=== PATIENT | male | born 1935 | race Caucasian/White ===

== ENCOUNTER 2024-09-13 12:45 | Inpatient (IN) ==
[2024-09-13] MEDS: SODIUM CHLORIDE 0.9% 1,000 ML IV SCH (13:02)
--- NOTE | 2024-09-13 13:06 | Emergency Department Note ---
Impression & Plan Weakness, Fall, Parainfluenza ED Provider Note Provider: Dewayne Lopez MD CHIEF COMPLAINT: Fall, weakness HISTORY OF PRESENT ILLNESS: Patient is a 88-year-old gentleman history of prior Mohs surgery on the top of his head last month presenting here via ambulance from his home. Patient states that he was feeling well yesterday morning. Came back around lunchtime however after going to the grocery store and started to feel generally weak and fatigued. Took a nap. Woke up and just felt weak and had a hard time getting out of his recliner chair than normal. Did have dinner and breakfast with some muffins and orange juice this morning. States he was still feeling weak and then was on the phone with his son and states he twisted and fell to the ground. Denies losing consciousness. States he did hit the back of his head briefly. Was unable to get up. Son was contacted and came and ambulance was contacted. Ambulatory the patient was having difficulty signing paperwork as he states his vision was off and that the house he was in was quite warm. Patient states that it did not seem warm to him. He denies measured fever or cough or sore throat or shortness of breath. Denies chest pain or abdominal pain or nausea vomiting or diarrhea. Denies urinary symptoms or diarrheal symptoms. Denies other significant past medical history but does not follow with primary care. Denies current prescription medications. States he feels feels sort of weak and states his vision was off a little earlier due to some crusting or discharge in his eyes which is improved now. Denies sick contact. Patient with some chronic longstanding slight left leg swelling states been investigated before with ultrasound without findings of blood clot. PAST MEDICAL HISTORY: As noted above MEDICATIONS: Denies current prescription medications SOCIAL HISTORY: Lives at home by himself by report PHYSICAL EXAM: GENERAL: alert and oriented in no acute distress on stretcher Head: normocephalic with bandage in place on the top of the head without seepage or significant swelling or discharge. Not severely tender. EYES: No injection, discharge or icterus. PERRL, EOMI. NECK: Trachea midline. Supple without midline cervical tenderness ENT: Mucous membranes pink and moist. LUNGS: Airway patent. No retractions. Breath sounds clear with good air entry bilaterally. HEART: Regular rate and rhythm. No chest wall tenderness ABDOMEN: Soft and non-tender, without guarding or rebound. Stable pelvis. No flank tenderness. SKIN: Acyanotic, warm, dry, without rashes EXTREMITIES: Without tenderness of the upper extremities with a small abrasion to the right elbow. Soft compartments of the upper extremities neurovascularly intact distally in the hands. Lower extremities without significant tenderness or evidence of trauma. There is some slight 1+ edema of the lower left calf and ankle without tenderness. NEUROLOGICAL: No focal deficits moving all extremities. No aphasia. No facial droop or slurred speech. Normal strength and tone in the extremities. Sensation to gross touch normal. EK bpm normal sinus rhythm with left axis left bundle branch block. No clear acute ST segment elevation or Sgarbossa criteria with a QTc of 450. Compared to previous from April 08, 2014 I with a left bundle branch block. CONTINUOUS CARDIAC MONITORING: was ordered and showed a heart rate of 90s bpm in normal sinus rhythm GCS 15. Patient's laboratory studies and imaging reviewed. Differential includes traumatic injury, infection, dehydration, metabolic abnormality, hypo/hyperglycemia, electrolyte disturbance, anemia, hypoxia, cardiac sources, intracerebral event/neurologic, as well as other pathologies. IMPRESSION/MEDICAL DECISION MAKING: Patient in no distress. Not febrile here or hypotensive. Patient reports feeling weak since yesterday but not syncopized and losing his balance and falling today and being being too weak to get up. Little abrasion on the right elbow but I doubt any based on exam of any fracture or dislocation. No evidence of compartment syndrome. Did bump his head and will complete a CT here. Nexus negative and doubt cervical spine injury. No neurological deficits focally reported. Denies significant chest pain abdominal pain or nausea vomiting or diarrhea. Respiratory panel sent as well as basic blood work. Given some IV fluid hydration here. Nursing reports EMS stated the home was quite warm. It seems as if the patient is either slow to give me the full history or may be forgetful. Does not seem lethargic however. Unclear if the patient has underlying medical conditions as he does not follow with outpatient general primary care and has not been to the hospital recently. No evidence of any significant wounds to the head or obvious abnormality to the prior Mohs procedure to his head. Not having focal deficits and I doubt CVA acutely at this time. Blood work here today without significant anemia or leukocytosis. Normal platelet count. No significant renal dysfunction with a sodium of 135 but no other significant electrolyte abnormalities. CK normal. No findings of hepatitis. Procalcitonin 0.16 not significantly elevated and TSH 0.377. Troponin high-sensitivity minimally elevated 23.9. No priors for comparison. Unclear if chronic or not. Negative anaplasmosis and Lyme screen. Positive parainfluenza 3. 1 view chest x-ray per my review and interpretation without evidence of pneumonia pneumothorax or severe pulmonary edema. No free air with some mild cardiomegaly. CT head per radiology questions artifact versus small trace left subdural on the CT of the head without other abnormalities. Discussed with patient and his son at bedside at length. After thought patient states he would not want neurosurgical intervention or large surgery. He states it will be what it will be which I believe is reasonable. As such we will not pursue neurosurgical consultation or possible transfer. Son agrees with the plan to keep the patient overnight for observation of the patient agreeable. They ask if PT could be possible to work on his strength. 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 DIAGNOSIS: Weakness, fall, right elbow abrasion, parainfluenza 3 infection DISPOSITION: Hospitalist will evaluate Patient was agreeable with this plan. Past Med/Surg History Problem List (Updated 09/13/24 @ 15:29 by Dewayne Lopez M.D.) Parainfluenza (Acute) Fall (Acute) Weakness (Acute) Acute bronchitis (Acute) Social History Smoking Status: Never smoker Preferred Language: Telugu Feels Safe at Home: Yes Allergies Allergies Allergy/AdvReac Type Severity Reaction Status Date / Time lobster Allergy Severe Anaphylaxis Verified 09/13/24 16:43 pollen extracts Allergy Mild SEASONAL Unverified 08/28/17 19:09 Home Meds Home Medications Medication Instructions Recorded Confirmed ibuprofen 200 mg tablet 200 - 600 mg PO Q4H PRN Pain #0 08/28/17 09/13/24 tabs loratadine 10 mg tablet 10 mg PO DAILY #0 tabs 08/28/17 09/13/24 Results & Data (ED) Vital Signs Vital Signs - 24 hr 09/13/24 12:34 09/13/24 12:36 09/13/24 12:36 Temperature 37.1 C Temperature Source Oral Pulse Rate 95 H Pulse Rate [Finger] Respiratory Rate 18 18 Blood Pressure 154/73 H Blood Pressure [Right Arm] Blood Pressure Mean 100 Blood Pressure Mean [Right Arm] Pulse Oximetry 93 Oxygen Delivery Method Room Air Sepsis Recent Fever Within 48 Hours No Sepsis New/Unexplained Change in Mental Status N/A Sepsis Action Taken by Nursing No Action Required 09/13/24 12:57 09/13/24 12:58 09/13/24 14:30 Temperature Temperature Source Pulse Rate 96 H 93 H Pulse Rate [Finger] 93 H Respiratory Rate 18 18 Blood Pressure Blood Pressure [Right Arm] 169/91 H Blood Pressure Mean Blood Pressure Mean [Right Arm] 117 Pulse Oximetry 93 90 Oxygen Delivery Method Room Air Room Air Sepsis Recent Fever Within 48 Hours Sepsis New/Unexplained Change in Mental Status Sepsis Action Taken by Nursing 09/13/24 16:00 Temperature Temperature Source Pulse Rate Pulse Rate [Finger] 92 H Respiratory Rate 22 Blood Pressure Blood Pressure [Right Arm] 153/79 H Blood Pressure Mean Blood Pressure Mean [Right Arm] 103 Pulse Oximetry 91 Oxygen Delivery Method Room Air Sepsis Recent Fever Within 48 Hours Sepsis New/Unexplained Change in Mental Status Sepsis Action Taken by Nursing Laboratory Data 09/13/24 13:00 09/13/24 13:00 Lab Results 09/13/24 09/13/24 09/13/24 Range/Units 13:00 13:54 14:05 WBC 5.29 (4.8-10.8) K/ul RBC 4.57 L (4.70-6.10) M/uL Hgb 14.5 (14.0-18.0) g/dl Hct 43.8 (42.0-52.0) % MCV 95.8 (80.0-100.0) fL MCH 31.7 (25.0-34.0) pg MCHC 33.1 (32.0-36.0) g/dL RDW Std Deviation 46.5 H (36.4-46.3) fL RDW Coeff of [place] 13.2 (11.5-14.5) % Plt Count 189 (130-400) K/uL MPV 8.2 L (9.4-12.4) fL Immature Gran % (Auto) 0.4 % Neut % (Auto) 89.4 % Lymph % (Auto) 5.5 % Knox % (Auto) 4.3 % Eos % (Auto) 0.0 % Baso % (Auto) 0.4 % Neut # (Auto) 4.73 (1.40-6.50) K/uL Lymph # (Auto) 0.29 L (1.20-3.40) K/uL Knox # (Auto) 0.23 (0.11-0.59) K/uL Eos # (Auto) 0.00 (0.00-0.50) K/uL Baso # (Auto) 0.02 (0.00-0.20) K/uL Immature Gran # (Auto) 0.02 (0.01-0.20) K/uL PT 11.4 (9.0-12.0) Seconds INR 1.1 (0.9-1.1) Sodium 135 L (136-145) mmol/L Potassium 4.2 (3.5-5.1) mmol/L Chloride 101 (98-107) mmol/L Carbon Dioxide 27 (21-32) mmol/L Anion Gap 7 (3-11) BUN 17 (6-23) mg/dl Creatinine 0.89 (0.6-1.4) mg/dl Est Cr Clr Drug Dosing 66.8 ml/min eGFR 83.46 BUN/Creatinine Ratio 19.1 (10-20) Glucose 109 H (70-99(Fasting)) mg/dl Lactate 1.8 (0.4-2.0) mmol/L Calcium 9.1 (8.6-10.3) mg/dl Magnesium 1.9 (1.7-2.4) mg/dl Total Bilirubin 0.6 (0.2-1.0) mg/dl AST 24 (13-39) U/L ALT 17 (7-52) U/L Alkaline Phosphatase 94 (34-104) U/L Total Creatine Kinase 89 (30-223) U/L Troponin I High Sens 23.9 H (0-20) pg/ml Total Protein 6.9 (6.0-8.3) gm/dl Albumin 4.1 (3.4-5.0) gm/dl Globulin 2.8 (2.5-4.0) gm/dl Albumin/Globulin Ratio 1.5 (0.9-2) Procalcitonin 0.16 (0-0.5) ng/ml TSH 0.377 (0.300-4.500) uIu/ml Urine Color Yellow Urine Appearance Clear (Clear) Urine pH 6.5 (4.5-7.5) Ur Specific [place] 1.026 (1.000-1.030) Urine Protein 1+ H (Negative) Urine Glucose (UA) Negative (Negative) Urine Ketones 2+ H (Negative) Urine Blood Negative (Negative) Urine Nitrite Negative (Negative) Urine Bilirubin Negative (Negative) Urine Urobilinogen Negative (Negative) Ur Leukocyte Esterase Negative (Negative) Urine WBC (Auto) 0-5 (0-5) /hpf Urine RBC (Auto) 6-10 H (0-2) /hpf U Hyaline Cast (Auto) 0-2 (0-2) /lpf U Epithel Cells (Auto) 0-2 (0-2) /hpf Urine Bacteria (Auto) None Seen (None Seen) Urine Mucus Present A (None Prsent) Urine Comment Adenovirus (PCR) (NotDetected) Anaplasma Smear See Comment Babesia Smear See Comment B. pertussis DNA (PCR) (NotDetected) B.parapertussis DNA PCR (NotDetected) Lyme Disease Screen Negative (Negative) C. pneumoniae DNA (PCR) (NotDetected) Coronavirus OC43 (PCR) (NotDetected) Coronavirus HKU1 (PCR) (NotDetected) Coronavirus 229E (PCR) (NotDetected) SARS-CoV-2 (PCR) (NotDetected) Coronavirus NL63 (PCR) (NotDetected) Human Metapneumovir PCR (NotDetected) Influenza Type A (PCR) (NotDetected) Influenza Type B (PCR) (NotDetected) M. pneumoniae (PCR) (NotDetected) Parainfluenza 1 (PCR) (NotDetected) Parainfluenza 2 (PCR) (NotDetected) Parainfluenza 3 (PCR) (NotDetected) Parainfluenza 4 (PCR) (NotDetected) RSV (PCR) (NotDetected) Entero/Rhino (PCR) (NotDetected) 09/13/24 09/13/24 Range/Units 14:45 Unknown WBC (4.8-10.8) K/ul RBC (4.70-6.10) M/uL Hgb (14.0-18.0) g/dl Hct (42.0-52.0) % MCV (80.0-100.0) fL MCH (25.0-34.0) pg MCHC (32.0-36.0) g/dL RDW Std Deviation (36.4-46.3) fL RDW Coeff of [place] (11.5-14.5) % Plt Count (130-400) K/uL MPV (9.4-12.4) fL Immature Gran % (Auto) % Neut % (Auto) % Lymph % (Auto) % Knox % (Auto) % Eos % (Auto) % Baso % (Auto) % Neut # (Auto) (1.40-6.50) K/uL Lymph # (Auto) (1.20-3.40) K/uL Knox # (Auto) (0.11-0.59) K/uL Eos # (Auto) (0.00-0.50) K/uL Baso # (Auto) (0.00-0.20) K/uL Immature Gran # (Auto) (0.01-0.20) K/uL PT (9.0-12.0) Seconds INR (0.9-1.1) Sodium (136-145) mmol/L Potassium (3.5-5.1) mmol/L Chloride (98-107) mmol/L Carbon Dioxide (21-32) mmol/L Anion Gap (3-11) BUN (6-23) mg/dl Creatinine (0.6-1.4) mg/dl Est Cr Clr Drug Dosing ml/min eGFR BUN/Creatinine Ratio (10-20) Glucose (70-99(Fasting)) mg/dl Lactate (0.4-2.0) mmol/L Calcium (8.6-10.3) mg/dl Magnesium (1.7-2.4) mg/dl Total Bilirubin (0.2-1.0) mg/dl AST (13-39) U/L ALT (7-52) U/L Alkaline Phosphatase (34-104) U/L Total Creatine Kinase (30-223) U/L Troponin I High Sens 24.2 H (0-20) pg/ml Total Protein (6.0-8.3) gm/dl Albumin (3.4-5.0) gm/dl Globulin (2.5-4.0) gm/dl Albumin/Globulin Ratio (0.9-2) Procalcitonin (0-0.5) ng/ml TSH (0.300-4.500) uIu/ml Urine Color Urine Appearance (Clear) Urine pH (4.5-7.5) Ur Specific [place] (1.000-1.030) Urine Protein (Negative) Urine Glucose (UA) (Negative) Urine Ketones (Negative) Urine Blood (Negative) Urine Nitrite (Negative) Urine Bilirubin (Negative) Urine Urobilinogen (Negative) Ur Leukocyte Esterase (Negative) Urine WBC (Auto) (0-5) /hpf Urine RBC (Auto) (0-2) /hpf U Hyaline Cast (Auto) (0-2) /lpf U Epithel Cells (Auto) (0-2) /hpf Urine Bacteria (Auto) (None Seen) Urine Mucus (None Prsent) Urine Comment Adenovirus (PCR) Not Detected (NotDetected) Anaplasma Smear Babesia Smear B. pertussis DNA (PCR) Not Detected (NotDetected) B.parapertussis DNA PCR Not Detected (NotDetected) Lyme Disease Screen (Negative) C. pneumoniae DNA (PCR) Not Detected (NotDetected) Coronavirus OC43 (PCR) Not Detected (NotDetected) Coronavirus HKU1 (PCR) Not Detected (NotDetected) Coronavirus 229E (PCR) Not Detected (NotDetected) SARS-CoV-2 (PCR) Not Detected (NotDetected) Coronavirus NL63 (PCR) Not Detected (NotDetected) Human Metapneumovir PCR Not Detected (NotDetected) Influenza Type A (PCR) Not Detected (NotDetected) Influenza Type B (PCR) Not Detected (NotDetected) M. pneumoniae (PCR) Not Detected (NotDetected) Parainfluenza 1 (PCR) Not Detected (NotDetected) Parainfluenza 2 (PCR) Not Detected (NotDetected) Parainfluenza 3 (PCR) DETECTED A (NotDetected) Parainfluenza 4 (PCR) Not Detected (NotDetected) RSV (PCR) Not Detected (NotDetected) Entero/Rhino (PCR) Not Detected (NotDetected) Administered Medications Discontinued Medications Sodium Chloride (Nss) 1,000 mls @ 999 mls/hr IV .Q1H1M KERRY Stop: 09/13/24 14:00 Last Infusion: 09/13/24 14:54 Dose: Infused Documented By: Admin: 09/13/24 13:02 Dose: 999 mls/hr Documented By: ROLANDO Imaging Data Radiologist's Impression: Chest X-Ray 09/13/24 12:57 XR chest 1V portable CLINICAL HISTORY: weakness, fall COMPARISON STUDY: None FINDINGS: There is mild cardiomegaly without pulmonary vascular congestion. Inspiration is shallow. No effusion, consolidation, or pneumothorax. IMPRESSION: No acute findings. ACT 112: Negative or not required by law. Electronically signed by: Asher Akins M.D. 09/13/2024 1:[address] 09/13/24 12:58 CT head/brain wo con CLINICAL HISTORY: weakness, fall. TECHNIQUE: Multiple axial CT images of the head were obtained without contrast. A dose lowering technique was utilized adhering to the principles of ALARA. CT DOSE: 781.9 mGy.cm COMPARISON: None FINDINGS: There is mild motion artifact. There is moderate prominence of the ventricles out of proportion to the sulci which can represent normal pressure hydrocephalus or cerebral atrophy. There is a very small area of increased density in the subdural space upper left parietal lobe series 4 image 132 and series 401 image 54. No other intracranial hemorrhage seen. No mass effect, midline shift, or hydrocephalus. There are mild chronic small vessel ischemic changes. No skull fracture seen. There is mild mucosal thickening in the maxillary sinuses. No mastoid effusion. IMPRESSION: 1. Very small area of increased density in the left subdural space could represent a trace left subdural hemorrhage, artifact from blood vessel, or motion artifact. 2. No other intracranial hemorrhage or acute findings seen. 3. Otherwise as described. ACT 112: Negative or not required by law. The above report was generated using voice recognition software. It may contain grammatical, syntax or spelling errors. Electronically signed by: Asher Akins M.D. 09/13/2024 1:38 PM Discharge Plan Visit Data Chief Complaint: Dizziness Stated Complaint: DIZZINESS, WEAKNESS, FALL ED Provider: Dewayne Lopez Discharge Problem: Weakness, Fall, Parainfluenza Patient Disposition: Being Evaluated by Hospitalist Condition: Fair Forms Stand Alone Forms: [facility] Prescriptions Prescriptions: No Action ibuprofen 200 mg Tablet 200 - 600 mg PO Q4H PRN (Reason: Pain) Qty: 0 Rx Instructions: 09/13-otc unable to verify loratadine 10 mg Tablet 10 mg PO DAILY Qty: 0 Rx Instructions: 09/13-otc unable to verify Referrals Referrals: Maynor Mcghee MD [Outside Practitioners] -
[2024-09-13 13:13] LABS: Basophils # (auto) 0.02 K/uL (0.00-0.20); Basophils % (auto) 0.4 %; Hematocrit (blood only) 43.8 % (42.0-52.0); Hemoglobin 14.5 g/dl (14.0-18.0); Immature Granulocytes # (auto) 0.02 K/uL (0.01-0.20); Immature Granulocytes % (auto) 0.4 %; Lymphocytes # (auto) 0.29 K/uL (1.20-3.40); Lymphocytes % (auto) 5.5 %; Mean Corpuscular Hemoglobin 31.7 pg (25.0-34.0); Mean Corpuscular Hgb Conc 33.1 g/dL (32.0-36.0); Mean Corpuscular Volume 95.8 fL (80.0-100.0); Mean Platelet Volume 8.2 fL (9.4-12.4); Monocytes # (auto) 0.23 K/uL (0.11-0.59); Monocytes % (auto) 4.3 %; Neutrophils # (auto) 4.73 K/uL (1.40-6.50); Neutrophils % (auto) 89.4 %; Platelet Count 189 K/uL (130-400); RDW Coefficient of Variation 13.2 % (11.5-14.5); RDW Standard Deviation 46.5 fL (36.4-46.3); Red Blood Count 4.57 M/uL (4.70-6.10); White Blood Count 5.29 K/ul (4.8-10.8)
--- NOTE | 2024-09-13 13:19 | XRay Report ---
XR chest 1V portable CLINICAL HISTORY: weakness, fall COMPARISON STUDY: None FINDINGS: There is mild cardiomegaly without pulmonary vascular congestion. Inspiration is shallow. N o effusion, consolidation, or pneumothorax. IMPRESSION: No acute findings. ACT 112: Negative or not required by law. Electronically signed by: Asher Akins M.D. 09/13/2024 1:18 PM
[2024-09-13 13:34] LABS: Albumin Globulin Ratio 1.5 (0.9-2); BUN Creatinine Ratio 19.1 (10-20); Bilirubin,Total 0.6 mg/dl (0.2-1.0); Calcium 9.1 mg/dl (8.6-10.3); Creatinine Clr Calc Pharmacy 66.8 ml/min; Globulin 2.8 gm/dl (2.5-4.0); Magnesium 1.9 mg/dl (1.7-2.4); Potassium 4.2 mmol/L (3.5-5.1); Total Protein 6.9 gm/dl (6.0-8.3)
[2024-09-13 13:39] LABS: Procalcitonin 0.16 ng/ml (0-0.5); Troponin I High Sensitivity 23.9 pg/ml (0-20)
--- NOTE | 2024-09-13 13:40 | CT Scan Report ---
CT head/brain wo con CLINICAL HISTORY: weakness, fall. TECHNIQUE: Multiple axial CT images of the head were obtained without contrast. A dose lowering tech nique was utilized adhering to the principles of ALARA. CT DOSE: 781.9 mGy.cm COMPARISON: None FINDINGS: There is mild motion artifact. There is moderate prominence of the ventricles out of propor tion to the sulci which can represent normal pressure hydrocephalus or cerebral atrophy. There is a v estephanie small area of increased density in the subdural space upper left parietal lobe series 4 image 132 and series 401 image 54. No other intracranial hemorrhage seen. No mass effect, midline shift, or hy drocephalus. There are mild chronic small vessel ischemic changes. No skull fracture seen. There is m ild mucosal thickening in the maxillary sinuses. No mastoid effusion. IMPRESSION: 1. Very small area of increased density in the left subdural space could represent a trace left subdu ral hemorrhage, artifact from blood vessel, or motion artifact. 2. No other intracranial hemorrhage or acute findings seen. 3. Otherwise as described. ACT 112: Negative or not required by law. The above report was generated using voice recognition software. It may contain grammatical, syntax o r spelling errors. Electronically signed by: Asher Akins M.D. 09/13/2024 1:38 PM
[2024-09-13 13:48] LABS: Thyroid Stimulating Hormone 0.377 uIu/ml (0.300-4.500)
[2024-09-13 14:05] LABS: Lyme Screen Rflx Confirmation Negative (Negative)
[2024-09-13 14:30] LABS: INR 1.1 (0.9-1.1); Prothrombin Time 11.4 Seconds (9.0-12.0)
[2024-09-13 14:37] LABS: Adenovirus PCR Not Detected (NotDetected); Bordetella parapertussis PCR Not Detected (NotDetected); Bordetella pertussis PCR Not Detected (NotDetected); Chlamydia pneumoniae PCR Not Detected (NotDetected); Coronavirus 229E PCR Not Detected (NotDetected); Coronavirus CoV-2 (COVID19)PCR Not Detected (NotDetected); Coronavirus HKU1 PCR Not Detected (NotDetected); Coronavirus NL63 PCR Not Detected (NotDetected); Coronavirus OC43PCR Not Detected (NotDetected); Human Metapneumovirus PCR Not Detected (NotDetected); Influenza A PCR Not Detected (NotDetected); Influenza B PCR Not Detected (NotDetected); Mycoplasma pneumoniae PCR Not Detected (NotDetected); Parainfluenza Virus 1 PCR Not Detected (NotDetected); Parainfluenza Virus 2 PCR Not Detected (NotDetected); Parainfluenza Virus 3 PCR DETECTED (NotDetected); Parainfluenza Virus 4 PCR Not Detected (NotDetected); Respiratory Syncytial VirusPCR Not Detected (NotDetected); Rhinovirus/Enterovirus PCR Not Detected (NotDetected)
[2024-09-13 15:22] LABS: Appearance Urine Clear (Clear); Bacteria Urine Automated None Seen (None Seen); Bilirubin Urine Negative (Negative); Blood Urine Negative (Negative); Cast Urine Automated 0-2 /lpf (0-2); Color Urine Yellow; Epithelial Cell Urine Auto 0-2 /hpf (0-2); Glucose Urine UA Negative (Negative); Ketones Urine 2+ (Negative); Leukocyte Esterase Urine Negative (Negative); Mucus Urine Present (None Prsent); Nitrite Urine Negative (Negative); Protein Urine 1+ (Negative); Specific Gravity Urine 1.026 (1.000-1.030); Urobilinogen Urine Negative (Negative); WBC Urine Automated 0-5 /hpf (0-5); pH Urine 6.5 (4.5-7.5)
--- NOTE | 2024-09-13 16:15 | History & Physical Report ---
Date of Service September 13, 2024 Assessment & Plan (1) Parainfluenza: (2) Fall: (3) Weakness: Plan Assessment/plan Generalized weakness Parainfluenza infection Possible trace left subdural hemorrhage Patient presents to the hospital with generalized fatigue, weakness and fall. CBC did not reveal leukocytosis. BUN/creatinine within normal limits. High-Sensitivity Troponin Was Mildly Elevated with No Delta gap. Urinalysis does not suggest infection. Respiratory viral panel was positive for parainfluenza. Chest x-ray did not show acute findings. CT head without contrast showed very small area of increased density in the left subdural space which could represent trace left subdural hemorrhage or artifact. Discussion was done by ED provider with patient and patient's son; patient does not want any intervention/surgery. Supportive care for parainfluenza infection; Tylenol, Mucinex. Will repeat CT head without contrast in a.m. 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 It may contain grammatical, syntax or spelling errors. Any formal questions or concerns about the content, text or information contained within the body of this dictation should be directly addressed to the provider for clarification History of Present Illness Primary Care Provider: NO PCP History obtained from interview with the patient and chart review Past medical history of colon cancer status post partial colectomy in 1996, history of PE Patient presented to the hospital with reports of generalized weakness and fatigue. Patient woke up from the nap; felt weaker and had a hard time getting out of the recliner any fell on the ground. Patient denies fever, sore throat, shortness of breath, chest pain, abdominal pain nausea or vomiting or any urinary symptoms. On presentation to the ED, he was hypertensive, afebrile and saturating well in room air. CBC did not reveal leukocytosis. BUN/creatinine within normal limits. High-Sensitivity Troponin Was Mildly Elevated with No Delta gap. Urinalysis does not suggest infection. Respiratory viral panel was positive for parainfluenza. Chest x-ray did not show acute findings. CT head without contrast showed very small area of increased density in the left subdural space which could represent trace left subdural hemorrhage or artifact. Discussion was done by ED provider with patient and patient's son; patient does not want any intervention/surgery. Patient was referred for admission. Allergies Allergy/AdvReac Type Severity Reaction Status Date / Time lobster Allergy Severe Anaphylaxis Verified 09/13/24 16:43 pollen extracts Allergy Mild SEASONAL Unverified 08/28/17 19:09 Home Medications Medication Instructions Recorded Confirmed Type ibuprofen 200 mg tablet 200 - 600 mg PO Q4H PRN Pain #0 08/28/17 09/13/24 History tabs loratadine 10 mg tablet 10 mg PO DAILY #0 tabs 08/28/17 09/13/24 History Past Med/Surg History Problem List (Updated 09/13/24 @ 15:29 by Dewayne Lopez M.D.) Parainfluenza (Acute) Fall (Acute) Weakness (Acute) Acute bronchitis (Acute) Social History Smoking Status: Never smoker Preferred Language: Hebrew Feels Safe at Home: Yes Physical Exam Physical Exam: On physical examination; Constitutional: WD/WN, vitals as above, NAD, sitting up in bed, pleasant, conversing easily head- bandage over the head, rech KRYSTAL surgery Respiratory: normal respiratory effort, lungs clear to auscultation, no wheeze, rales, rhonchi. Normal insp/exp effort, no accessory muscle use Cardiovascular: RRR, no murmur, no edema Vessels: no JVD or carotid bruit Chest: normal inspection of chest Abdomen: normal bowel sounds, soft, nontender, no hepatosplenomegaly Musculoskeletal: no cyanosis or clubbing, extremities motor strength 5/5 Skin: no rashes, warm and dry normal turgor Neurologic: PERRL, EOMI, accommodation nl, no face palsy, no dysarthria CN's II- XI intact bilaterally and moves all extremities Psychiatric: A+Ox3, euthymic affect Results & Data Results & Data Vital Signs (Past 12 Hours) Vital Signs Temp Pulse Pulse Resp BP BP Pulse Ox 09/13/24 16:00 92 H 22 153/79 H 91 09/13/24 14:30 93 H 18 169/91 H 90 09/13/24 12:58 93 H 09/13/24 12:57 96 H 18 93 09/13/24 12:36 18 09/13/24 12:36 09/13/24 12:34 37.1 C 95 H 18 154/73 H 93 O2 Del Method 09/13/24 16:00 Room Air 09/13/24 14:30 Room Air 09/13/24 12:58 09/13/24 12:57 Room Air 09/13/24 12:36 09/13/24 12:36 Room Air 09/13/24 12:34
[2024-09-13] MEDS ORDERED: POLYETHYLENE (MIRALAX) 17 GM PACK PO PRN (16:39)
[2024-09-13] MEDS: guaiFENesin 600 MG TABCR PO SCH (22:35)
[2024-09-14 07:42] LABS: Calcium 8.4 mg/dl (8.6-10.3); Potassium 3.8 mmol/L (3.5-5.1)
[2024-09-14 07:48] LABS: Creatinine Clr Calc Pharmacy 72.6 ml/min
--- NOTE | 2024-09-14 07:53 | CT Scan Report ---
EXAM: CT head/brain wo con CLINICAL HISTORY: Bed. TECHNIQUE: Axial non-contrast CT scan of the brain was performed from the skull base to the high parietal region. One of the following dose reduction techniques were utilized for this exam: Automated exposure control, adjustment of the mA and/or kV according to patient size, use of iterative reconstruction. CTDI: 43.11 mGy , DLP: 750.68 mGy-cm. COMPARISON: 08/28/2017. FINDINGS: Brain Parenchyma: Multiple subcortical and periventricular white matter hypodensities likely represent chronic microvascular ischemic changes. Normal attenuation of the cerebral hemispheres, cerebellum, and brainstem. No evidence of acute infarct, hemorrhage, or mass effect. Unchanged hyperattenuation left the falx, suggesting faint calcification. Ventricular System: A capacious ventricular system, denoting atrophic changes. No evidence of hydrocephalus. Subarachnoid Spaces: Capacious CSF spaces denote atrophic changes. No evidence of subarachnoid hemorrhage or extra-axial fluid collections. Cerebellum and Brainstem: Normal size and attenuation. No masses, lesions, or areas of abnormal attenuation. Orbits: Normal appearance of the globes, optic nerves, and extraocular muscles. No evidence of orbital masses or abnormal attenuation. Sinuses: Mild mucosal thickening of both maxillary and ethmoid sinuses. Clear other paranasal sinuses. Mastoid Air Cells: Clear mastoid air cells. No evidence of mastoiditis. Skull and Meninges: Normal skull morphology. IMPRESSION: 1. No acute intracranial hemorrhage or acute abnormality. 2. Age-related brain involution with moderate microvascular ischemic changes. 3. Unchanged hyperattenuation left the falx, suggesting faint calcification. 4. No gross interval change in comparison with 08/28/2017. Electronically signed by Scottie Vitale 09-14-2024 07:53 AM
[2024-09-14 07:59] LABS: Basophils # (auto) 0.02 K/uL (0.00-0.20); Basophils % (auto) 0.3 %; Hematocrit (blood only) 42.3 % (42.0-52.0); Hemoglobin 14.6 g/dl (14.0-18.0); Immature Granulocytes # (auto) 0.04 K/uL (0.01-0.20); Immature Granulocytes % (auto) 0.6 %; Lymphocytes # (auto) 0.42 K/uL (1.20-3.40); Lymphocytes % (auto) 6.1 %; Mean Corpuscular Hemoglobin 32.9 pg (25.0-34.0); Mean Corpuscular Hgb Conc 34.5 g/dL (32.0-36.0); Mean Corpuscular Volume 95.3 fL (80.0-100.0); Mean Platelet Volume 8.9 fL (9.4-12.4); Monocytes # (auto) 0.47 K/uL (0.11-0.59); Monocytes % (auto) 6.8 %; Neutrophils # (auto) 5.93 K/uL (1.40-6.50); Neutrophils % (auto) 86.2 %; Platelet Count 146 K/uL (130-400); RDW Coefficient of Variation 13.1 % (11.5-14.5); RDW Standard Deviation 45.8 fL (36.4-46.3); Red Blood Count 4.44 M/uL (4.70-6.10); White Blood Count 6.88 K/ul (4.8-10.8)
--- NOTE | 2024-09-14 11:30 | Hospitalist Progress Note ---
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 He states he was talking w/ his son over the phone and he turned around, lost balance and fell. He denied any dizziness/palpitation/nausea/w armth/LOC around the event. Pt also reports RLE weakness worsening since about 2 weeks. He denies fever/chills/Sore throat/cough. He is being managed for the following: Generalized weakness Parainfluenza infection Possible trace left subdural hemorrhage RLE weakness Likely demand ischemia 2/2 acute illness Patient presents to the hospital with generalized fatigue, weakness and fall. CBC did not reveal leukocytosis. UA neg for UTI, RPR +ve parainfluenza 3. Renal fxn fairly wnl. Trop flat trend in low 20s, EKG w/ no acute ST-T changes. Pt w/ no chest pain. CXR w/ no acute findings. CT head initially concerning for trace left subdural hemorrhage or artifact, repeat CT head ruled hge out, it likely is calcification. Pt reports worsening RLE weakness and balance issues lately, will get MRI to ro stroke, will consult neuro. Supportive care for parainfluenza infection; Tylenol, Mucinex. PT OT evaluation History of colon cancer status post partial colectomy History of PEnot on anticoagulation, has risk of falls. DNR/DNI DVT prophylaxis SCDs, possibly to chemo dvt px once mri brain results out. Please note the above document was generated using voice recognition software. It may contain grammatical, syntax or spelling errors. Any formal questions or concerns about the content, text or information contained within the body of this dictation should be directly addressed to the provider for clarification Admission and Anticipated Discharge Date Admission Date: September 13, 2024 Subjective Patient was seen and examined at bedside. Patient was lying in bed, on room air, NAD, resting comfortably. Updated patient's son in person as well outside of the room. Patient denies any numbness or tingling, he has RLE weakness which he states has been worsening since about last 2 weeks but is having issues since about last 6 months. Discussed with physical therapy, patient noted to be leaning towards right. Patient denies chest pain or cough. Physical Exam Physical Exam: Constitutional: WD/WN, NAD, pleasant, conversing easily head- bandage over the head, rech MOHS surgery Respiratory: normal respiratory effort, lungs clear to auscultation, no wheeze, rales, rhonchi. Normal insp/exp effort, no accessory muscle use Cardiovascular: RRR, no murmur, no edema Vessels: no JVD or carotid bruit Chest: normal inspection of chest Abdomen: normal bowel sounds, soft, nontender, no hepatosplenomegaly Musculoskeletal: no cyanosis or clubbing, LLE 4/5, RLE 3/5, b/l UE 5/5. Skin: no rashes, warm and dry normal turgor Neurologic: PERRL, EOMI, accommodation nl, no face palsy, no dysarthria CN's II- XI intact bilaterally and moves all extremities Psychiatric: A+Ox3, euthymic affect Results & Data Results & Data Vital Signs (Past 12 Hours) Vital Signs Temp Pulse Resp BP Pulse Ox O2 Del Method 09/14/24 09:00 Room Air 09/14/24 07:14 37.5 C 90 16 173/79 H 94 Room Air
[2024-09-14] MEDS: LORazepam 0.5 MG TAB PO PRN (12:04)
[2024-09-14] MEDS: GADOBUTROL 65ML VIAL IV ONE (13:06)
--- NOTE | 2024-09-14 13:18 | Magnetic Resonance Report ---
MR brain wo/w con CLINICAL HISTORY: RLE weaker than LLE, ro stroke COMPARISON STUDY: CT earlier today FINDINGS: There is motion artifact. No restricted diffusion seen to suggest acute infarction. No mass effect or midline shift. There is stable prominence of the ventricles out of proportion of the sulci , cerebral atrophy versus normal pressure hydrocephalus. There are moderate chronic small vessel isch emic changes. No abnormal enhancement seen in the brain. There is mild mucosal thickening inferiorly in the maxillary sinuses. IMPRESSION: No evidence of acute infarction. ACT 112: Negative or not required by law. Electronically signed by: Asher Akins M.D. 09/14/2024 1:16 PM
--- NOTE | 2024-09-14 14:18 | Neurology Consultation ---
Date of Consultation September 14, 2024 Assessment & Plan (1) Right leg weakness: Recommend MRI imaging of spine with and without contrast if patient is agreeable Recommend echocardiogram as part of complete workup Continue frequent neurological assessments Obtain stat CT brain without contrast for any acute neurological decline Continue to monitor/control blood pressure & blood glucose Continue to monitor telemetry closely Continue to monitor renal and hepatic function, keep euvolemic Ok from neurology perspective for VTE prophylaxis PT/OT/SLT to eval and treat Telehealth Consultation Telehealth Information Telehealth Information: I performed this visit using a real-time telehealth connection between my location and the patients location ([facility]). After connecting through interactive tele-video, patient was identified by name and date of and/or wristband check.Patient (or authorized healthcare footwear sales representative) was informed that this was a telemedicine visit and it was being conducted confidentially over secure lines. My office door was closed and no one else was present in the room with me.Patient (or authorized healthcare footwear sales representative) provided consent to proceed with the visit, expressed an understanding of privacy and security of the telemedicine visit, and gave permission to have a hospital footwear sales representative in the room in order to assist with the visit and to conduct portions of the visit, as needed. I informed the patient (or authorized healthcare footwear sales representative) that I reviewed their record and presented the opportunity for them to ask any questions regarding the visit today. The patient agreed to participate. History of Present Illness Reason for Consultation: RLE weakness Requesting Physician: Dr Carrasco Attending Physician: Reanna Carrasco MD History of Present Illness 88yo male with limited past medical history reportedly fell at home over the weekend states he has worsened RLE weakness with notably LLE weakness as well. Reportedly was napping and awoke feeling more weakness than his baseline. He reports leg weakness ongoing for weeks/months. He has undergone CT brain without contrast revealing no overt evidence of acute intracranial pathology. MRI brain was performed revealing no evidence os acute ischemic stroke or acute intracranial pathology. I have performed televideo consultation. He is alert & o riented; able to answer all questions appropriately, name objects on televideo monitor, repeat phrases and perform complex/embedded commands without deficit. Neurological exam reveals BLE weakness RLE>LLE. I have suggested further imaging of his spine for which he immediately protested saying he want no further testing. He appears in no acute distress. Denies complaint at this time. RN at bedside helpful with televideo examination. Allergies Allergy/AdvReac Type Severity Reaction Status Date / Time lobster Allergy Severe Anaphylaxis Verified 09/13/24 16:43 pollen extracts Allergy Mild SEASONAL Unverified 08/28/17 19:09 Home Medications Medication Instructions Recorded Confirmed Type ibuprofen 200 mg tablet 200 - 600 mg PO Q4H PRN Pain #0 08/28/17 09/13/24 History tabs loratadine 10 mg tablet 10 mg PO DAILY #0 tabs 08/28/17 09/13/24 History Patient History Social History Smoking Status: Former smoker Do You Dip or Chew Tobacco: No; Hx Alcohol Use: No Hx Substance Use: No Preferred Language: Ghanaian Communication Ability: Effective Grave Cleaner Required: No Beliefs That Will Affect Care: None Current Living Situation: Alone Feels Safe at Home: Yes Safety Concerns: Feels Safe At This Time Assistive Devices: Walker Physical Exam Neurological Examination: Mental Status: Awake and alert. Oriented to person, place, and time. Fluency naming repetition and comprehension appear grossly intact. Affect remains appropriate. CN testing: I: Deferred II: Reports no changes in visual acuity III/IV/: No evidence of gaze preference, hippus, nystagmus or roving eye movements V: Facial sensation reportedly grossly intact to light touch bilaterally VII: Facial movements appear without evidence of asymmetry VIII: Hearing appears grossly intact to loud voice bilaterally IX/X: Palate is unable to be visualized via telemedicine XI: Shoulder shrug appears symmetric/ grossly intact bilaterally XII: Tongue protrudes midline without evidence of biting Motor exam: BLE weakness- RLE >LLE Sensory: Sensation is difficult to reliably assess Coordination: No apparent evidence of dysmetria or dysdiadochokinesia Reflexes: Deferred Gait: Deferred Results & Data Vital Signs (Past 12 Hours) Vital Signs Temp Pulse Resp BP Pulse Ox O2 Del Method 09/14/24 09:00 Room Air 09/14/24 07:14 37.5 C 90 16 173/79 H 94 Room Air Laboratory Results Abnormal lab results 09/13/24 09/13/24 09/13/24 Range/Units 14:05 14:45 Unknown RBC (4.70-6.10) M/uL MPV (9.4-12.4) fL Lymph # (Auto) (1.20-3.40) K/uL BUN/Creatinine Ratio (10-20) Calcium (8.6-10.3) mg/dl Troponin I High Sens 24.2 H (0-20) pg/ml Urine Protein 1+ H (Negative) Urine Ketones 2+ H (Negative) Urine RBC (Auto) 6-10 H (0-2) /hpf Urine Mucus Present A (None Prsent) Parainfluenza 3 (PCR) DETECTED A (NotDetected) 09/14/24 Range/Units 06:48 RBC 4.44 L (4.70-6.10) M/uL MPV 8.9 L (9.4-12.4) fL Lymph # (Auto) 0.42 L (1.20-3.40) K/uL BUN/Creatinine Ratio 22.0 H (10-20) Calcium 8.4 L (8.6-10.3) mg/dl Troponin I High Sens (0-20) pg/ml Urine Protein (Negative) Urine Ketones (Negative) Urine RBC (Auto) (0-2) /hpf Urine Mucus (None Prsent) Parainfluenza 3 (PCR) (NotDetected) Diagnostic Findings Head CT 09/14/24 07:00 EXAM: CT head/brain wo con CLINICAL HISTORY: Bed. TECHNIQUE: Axial non-contrast CT scan of the brain was performed from the skull base to the high parietal region. One of the following dose reduction techniques were utilized for this exam: Automated exposure control, adjustment of the mA and/or kV according to patient size, use of iterative reconstruction. CTDI: 43.11 mGy , DLP: 750.68 mGy-cm. COMPARISON: 08/28/2017. FINDINGS: Brain Parenchyma: Multiple subcortical and periventricular white matter hypodensities likely represent chronic microvascular ischemic changes. Normal attenuation of the cerebral hemispheres, cerebellum, and brainstem. No evidence of acute infarct, hemorrhage, or mass effect. Unchanged hyperattenuation left the falx, suggesting faint calcification. Ventricular System: A capacious ventricular system, denoting atrophic changes. No evidence of hydrocephalus. Subarachnoid Spaces: Capacious CSF spaces denote atrophic changes. No evidence of subarachnoid hemorrhage or extra-axial fluid collections. Cerebellum and Brainstem: Normal size and attenuation. No masses, lesions, or areas of abnormal attenuation. Orbits: Normal appearance of the globes, optic nerves, and extraocular muscles. No evidence of orbital masses or abnormal attenuation. Sinuses: Mild mucosal thickening of both maxillary and ethmoid sinuses. Clear other paranasal sinuses. Mastoid Air Cells: Clear mastoid air cells. No evidence of mastoiditis. Skull and Meninges: Normal skull morphology. IMPRESSION: 1. No acute intracranial hemorrhage or acute abnormality. 2. Age-related brain involution with moderate microvascular ischemic changes. 3. Unchanged hyperattenuation left the falx, suggesting faint calcification. 4. No gross interval change in comparison with 08/28/2017. Electronically signed by Scottie Vitale 09-14-2024 07:53 AM Brain MRI 09/14/24 10:33 MR brain wo/w con CLINICAL HISTORY: RLE weaker than LLE, ro stroke COMPARISON STUDY: CT earlier today FINDINGS: There is motion artifact. No restricted diffusion seen to suggest acute infarction. No mass effect or midline shift. There is stable prominence of the ventricles out of proportion of the sulci, cerebral atrophy versus normal pressure hydrocephalus. There are moderate chronic small vessel ischemic changes. No abnormal enhancement seen in the brain. There is mild mucosal thickening inferiorly in the maxillary sinuses. IMPRESSION: No evidence of acute infarction. ACT 112: Negative or not required by law. Electronically signed by: Asher Akins M.D. 09/14/2024 1:16 PM Medications Administered Home Medications Medication Instructions Recorded Confirmed Last Taken ibuprofen 200 mg tablet 200 - 600 mg PO Q4H PRN Pain #0 08/28/17 09/13/24 Unknown tabs loratadine 10 mg tablet 10 mg PO DAILY #0 tabs 08/28/17 09/13/24 Unknown Active Medications Generic Name Dose Route Start Last Admin Trade Name Freq PRN Reason Stop Dose Admin Guaifenesin 600 mg 09/13/24 21:00 09/14/24 07:42 Guaifenesin 600 Mg Tabcr PO 10/13/24 20:59 Not Given Q12 KERRY Lorazepam 0.5 mg 09/14/24 10:33 09/14/24 12:04 Lorazepam 0.5 Mg Tab PO 10/14/24 10:32 0.5 mg ONE PRN Administration for MRI brain
[2024-09-14] MEDS: HEPARIN SOD 5,000 UNIT/0.5 ML VIAL SQ SCH (21:54)
[2024-09-15 08:30] LABS: Hematocrit (blood only) 44.1 % (42.0-52.0); Hemoglobin 14.8 g/dl (14.0-18.0); Mean Corpuscular Hemoglobin 31.7 pg (25.0-34.0); Mean Corpuscular Hgb Conc 33.6 g/dL (32.0-36.0); Mean Corpuscular Volume 94.4 fL (80.0-100.0); Mean Platelet Volume 9.1 fL (9.4-12.4); Platelet Count 77 K/uL (130-400); RDW Coefficient of Variation 13.2 % (11.5-14.5); RDW Standard Deviation 46.1 fL (36.4-46.3); Red Blood Count 4.67 M/uL (4.70-6.10); White Blood Count 6.99 K/ul (4.8-10.8)
[2024-09-15 08:45] LABS: BUN Creatinine Ratio 29.9 (10-20); Calcium 8.2 mg/dl (8.6-10.3); Creatinine Clr Calc Pharmacy 77.3 ml/min; Magnesium 1.8 mg/dl (1.7-2.4); Phosphorus 1.8 mg/dl (2.5-4.9); Potassium 3.7 mmol/L (3.5-5.1)
--- NOTE | 2024-09-15 11:54 | Hospitalist Progress Note ---
Date of Service September 15, 2024 Assessment & Plan (1) Parainfluenza: (2) Fall: (3) Ambulatory dysfunction: Plan Patient 88-year-old gentleman with acute weakness and fall at home in the setting of parainfluenza viral infection. MRI of the brain negative for acute infarction. Patient had declined further imaging of the lumbar spine Continue therapies Case management aware of need for probable rehab placement. Attempted to contact patient's son via phone, no answer Admission and Anticipated Discharge Date Admission Date: September 13, 2024 Subjective Patient still requiring fair amount of assistance. Physical Exam Physical Exam: Constitutional: Alert HEENT: Mucous membranes moist. Lungs: Clear to auscultation, decreased, no wheezes rales or rhonchi CV: S1-S2, regular Abdomen: Soft, nontender, nondistended Extremities: No significant edema Neuro: No focal deficits, generalized weakness Psych: Cooperative, normal mood Results & Data Results & Data Vital Signs (Past 12 Hours) Vital Signs Temp Pulse Resp BP Pulse Ox O2 Del Method 09/15/24 07:37 36.9 C 96 H 16 154/69 H 94 Room Air Diagnostic Findings Reviewed imaging, laboratory and diagnostic studies. Pertinent findings as below. Potassium 3.7 Sodium 134 Phosphorus 1.8 MRI of the brain negative for acute stroke Blood culture no growth
[2024-09-15] MEDS: POT PHOSPHATE MONOBASIC W/ SOD TAB PO SCH (13:11)
[2024-09-15] MEDS: ACETAMINOPHEN 325 MG TAB PO PRN (15:13)
[2024-09-16 06:29] LABS: Calcium 7.8 mg/dl (8.6-10.3); Potassium 3.7 mmol/L (3.5-5.1)
[2024-09-16 06:43] LABS: BUN Creatinine Ratio 29.3 (10-20); Creatinine Clr Calc Pharmacy 64.7 ml/min
--- NOTE | 2024-09-16 12:51 | Hospitalist Progress Note ---
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 Will continue to address only as needed. Patient is still with significant lower extremity weakness and pain and ambulatory dysfunction. It was reported that the earlier the patient had declined lumbar spine imaging. I discussed this with him again today. Expressed to him that I was concerned that his legs were so weak and he was having pain in his thighs. I explained to him that this could be from degeneration of his low back and spine. I asked him what his concerns were about an MRI. He cannot really explain that. I told him that we could consider a CT scan of his back that would give us a little bit more information but not quite as detailed of the as the MRI. He again declined any further imaging of his spine. He requests that I tried to addressed his pain and that he would continue to attempt to work with therapy. Continues to be agreeable to go to [facility] Will schedule Tylenol to manage his pain Start gabapentin to see if that helps with any type of neuropathic pain he may be experiencing Continue therapies Continue to pursue skilled placement Phone conversation with the patient's son. He confirms that the patient is able to make his own decisions and she he 2 discussed with him about imaging of his spine. Patient continues to decline any further testing or imaging. Also discussed potential for NPH on MRI. More likely cerebral atrophy. Son is quite sure the patient would not agree to a lumbar puncture. Due to the possibility that he may have caused some inflammation of chronic osteoarthritic lumbar spine when he fell we will try a short course of Decadron to see if that helps with any of his symptoms as well. Admission and Anticipated Discharge Date Admission Date: September 13, 2024 Subjective Patient states that he has pain in both of his anterior thighs. This makes it difficult for him to move his legs and do therapy. Physical Exam Physical Exam: Constitutional: Alert, nontoxic HEENT: Mucous membranes moist. Lungs: Clear to auscultation, decreased, no wheezes rales or rhonchi CV: S1-S2, regular Abdomen: Soft, nontender, nondistended Extremities: No significant edema Neuro: Extremely weak lower extremities unable to lift off of the bed. Musculoskeletal: No tenderness to palpation over anterior thigh or hips Psych: Cooperative, normal mood Results & Data Results & Data Vital Signs (Past 12 Hours) Vital Signs Temp Pulse Resp BP Pulse Ox O2 Del Method 09/16/24 07:26 37.5 C 93 H 16 154/73 H 90 Room Air
--- NOTE | 2024-09-16 13:46 | Electrocardiogram Report ---
Test Reason : Blood Pressure : */* mmHG Vent. Rate : 89 BPM Atrial Rate : 89 BPM P-R Int : 194 ms QRS Dur : 142 ms QT Int : 370 ms P-R-T Axes : 33 -41 95 degrees QTcB Int : 450 ms Normal sinus rhythm Left axis deviation Left bundle branch block Abnormal ECG When compared with ECG of 08-Apr-2014 17:49, Left bundle branch block is now Present Confirmed by Damir Kelly ([id number]) on 09/16/2024 1:46:23 PM Referred By: Confirmed By: Damir Kelly
[2024-09-16] MEDS: GABAPENTIN 100 MG CAP PO SCH (14:09)
[2024-09-16] MEDS: dexAMETHasone 4 MG TAB PO SCH (14:09)
[2024-09-16] MEDS: ACETAMINOPHEN 500 MG TAB PO SCH (14:47)
--- NOTE | 2024-09-16 14:55 | Hospitalist Progress Note ---
Date of Service September 16, 2024 Assessment & Plan (1) Guillain Hernandez syndrome: (2) Parainfluenza: (3) Fall: (4) Ambulatory dysfunction: Plan Patient 88-year-old gentleman with progressive lower extremity weakness over the last 2 weeks and now with signs and symptoms of progressing weakness with speech and swallow. Absent to extremely weak reflexes. This is in setting of an inciting viral illness with parainfluenza. This with the son's history of the patient having progressive ambulatory dysfunction her last 2 weeks raises a suspicion for Guillain-Hernandez. With the progressive weakness, much lower suspicion that this is lumbar spine and radiculopathy symptomatology. Communication with neurology who had been involved in the patient's care previously asking to reevaluate the patient with these new findings. Will reevaluate patient. Agrees the trial of IVIG may be beneficial. Discussed IVIG treatment with the patient. He would be agreeable to this therapy. Patient meets diagnostic criteria for Guillain-Hernandez: Progressive weakness of legs and arms, decreased reflexes, Symptom progression less than 4 weeks. Supportive features include: progression over the last several days, bilateral symptoms, some pain in his upper thighs, preceding systemic infection Phone update to the patient's son. Explained Guillain-Hernandez. Explained treatment. He is agreeable to proceeding with the treatment as long as the patient is agreeable. Reassured him that the patient is agreeable with this plan. Son again confirms that the patient is DNR DNI and does not want aggressive interventions unless patient is agreeable. Speech therapy eval Modified diet Discontinue dexamethasone. Differential could consider viral myopathy. Check CPK, ESR, CRP Admission and Anticipated Discharge Date Admission Date: September 13, 2024 Subjective Called back to the bedside. Nursing now reporting that patient seems to be having trouble with some swallowing and requesting a speech eval. Also contacted by physical therapy. They report that the patient's leg weakness has progressed since his admission. Patient does admit having a little bit more trouble swallowing thin liquids. Does confirm that he seems to be getting more weak as the days go by. Still declining advanced imaging. Declining lumbar puncture. Physical Exam Physical Exam: Constitutional: Alert, nontoxic, no acute distress HEENT: Mucous membranes moist. Lungs: Clear to auscultation, decreased, no wheezes rales or rhonchi CV: S1-S2, regular Abdomen: Soft, nontender, nondistended Extremities: No significant edema Neuro: Absent to extremely weak bicep, tricep, patellar, reflexes, weak swallow, weaker speech. Barely able to move lower extremities in the bed seems even have progressed since this morning's exam Psych: Cooperative, normal mood, able to make decisions Results & Data Results & Data Vital Signs (Past 12 Hours) Vital Signs Temp Pulse Resp BP Pulse Ox O2 Del Method 09/16/24 14:38 36.9 C 97 H 28 H 115/63 91 Room Air 09/16/24 07:35 Room Air 09/16/24 07:26 37.5 C 93 H 16 154/73 H 90 Room Air Critical Care Time 45 minutes spent on reevaluation of patient, communication with specialist, review of data, documentation, interpretation of data, update nursing, update family
[2024-09-16] MEDS ORDERED: IMMUNE GLOBULIN (HUMAN) SOLN IV SCH (15:15)
--- NOTE | 2024-09-16 15:48 | Neurology Progress Note ---
Date of Service September 16, 2024 Assessment & Plan (1) Guillain Hernandez syndrome: Cristian Acevedo is an 88 yo M presenting with lower extremity weakness rapidly progressing over the last 2 weeks. MRI brain negative for acute process but with reduced reflexes and ascending weakness now affecting his swallowing function, GBS is a reasonable consideration. Alternative etiologies include parkinsonism and infection such as transverse myelitis though less likely now with the swallowing involvement. He has limitations on care and does not want further diagnostic workup though LP would be necessary to confirm the diagnosis, MRI spine would otherwise also be a consideration to rule out additional pathology that could explain his weakness. Okay for empiric treatment with IVIG as patient/family understand risk of clotting and infection. Would discontinue dexamethasone as it does not have a role in GBS treatment and could worsen weakness. -- IVIG x5 days (0.4g/kg per day) -- Premedicate with tylenol to prevent headache -- Chemical DVT ppx -- Respiratory function testing daily -- Swallow eval -- Will need outpatient neuromuscular followup. Subjective Telehealth Information I performed this visit using a real-time telehealth connection between my location and the patients location ([facility]). After connecting through interactive tele-video, patient was identified by name and date of and/or wristband check.Patient (or authorized healthcare public utilities sales representative) was informed that this was a telemedicine visit and it was being conducted confidentially over secure lines. My office door was closed and no o ne else was present in the room with me.Patient (or authorized healthcare public utilities sales representative) provided consent to proceed with the visit, expressed an understanding of privacy and security of the telemedicine visit, and gave permission to have a hospital public utilities sales representative in the room in order to assist with the visit and to conduct portions of the visit, as needed. I informed the patient (or authorized healthcare public utilities sales representative) that I reviewed their record and presented the opportunity for them to ask any questions regarding the visit today. The patient agreed to participate. Cristian Acevedo continues to decline with lower extremity weakness and now cognitive slowing and difficulty swallowing today. MRI from our consult on 09/14 was unremarkable with no further explanation for his lower extremity weakness. Per further history obtained this decline has been rather fast over the last 2 weeks as prior he was walking independently. There has otherwise been no deliriu m or acute change in mental status per nursing. Review of Systems +difficulty swallowing today Physical Exam Awake and alert, slow to respond to questions but attends the examiner. Face symmetric, ocular movements intact, no ptosis, normal tongue protrusion, no dysarthria. Antigravity strength in the upper extremities but movements are slow, no tremor, no fatiguable weakness noted. Distal movement in the feet bilaterally against gravity but not against resistance, unable to lift legs off the bed otherwise with poor proximal muscle strength bilaterally. Results & Data Vital Signs (Past 12 Hours) Vital Signs Temp Pulse Resp BP Pulse Ox O2 Del Method 09/16/24 14:38 36.9 C 97 H 28 H 115/63 91 Room Air 09/16/24 07:35 Room Air 09/16/24 07:26 37.5 C 93 H 16 154/73 H 90 Room Air Diagnostic Findings MRI Brain without contrast - Unremarkable
[2024-09-16] MEDS: ACETAMINOPHEN 500 MG TAB PO ONE (15:51)
[2024-09-16] MEDS: SODIUM CHLORIDE 0.9% 500 ML IV ONE (15:51)
[2024-09-16 16:21] LABS: C Reactive Protein 11.58 mg/dl (0-0.5)
[2024-09-16] MEDS: Octagam 10% IVIG 5 gram bottle IV SCH (16:25)
[2024-09-16] MEDS: Octagam 10% IVIG 10 gram bottle IV SCH (17:14)
[2024-09-16] MEDS: Octagam 10% IVIG 20 gram bottle IV SCH (19:23)
[2024-09-16] MEDS: SODIUM CHLORIDE 0.9% 1,000 ML IV SCH (23:16)
[2024-09-17 05:18] LABS: Bilirubin Direct 0.4 mg/dl (0-0.2); Bilirubin,Total 1.1 mg/dl (0.2-1.0); Calcium 7.1 mg/dl (8.6-10.3); Creatinine Clr Calc Pharmacy 37.2 ml/min; Potassium 3.7 mmol/L (3.5-5.1)
[2024-09-17 05:26] LABS: Basophils # (auto) 0.01 K/uL (0.00-0.20); Basophils % (auto) 0.2 %; Echinocytes 1+; Hematocrit (blood only) 37.8 % (42.0-52.0); Hemoglobin 12.9 g/dl (14.0-18.0); Immature Granulocytes # (auto) 0.06 K/uL (0.01-0.20); Immature Granulocytes % (auto) 1.3 %; Lymphocytes # (auto) 0.42 K/uL (1.20-3.40); Lymphocytes % (auto) 9.3 %; Mean Corpuscular Hemoglobin 31.3 pg (25.0-34.0); Mean Corpuscular Hgb Conc 34.1 g/dL (32.0-36.0); Mean Corpuscular Volume 91.7 fL (80.0-100.0); Mean Platelet Volume 12.7 fL (9.4-12.4); Monocytes # (auto) 0.16 K/uL (0.11-0.59); Monocytes % (auto) 3.5 %; Neutrophils # (auto) 3.88 K/uL (1.40-6.50); Neutrophils % (auto) 85.7 %; Platelet Count 26 K/uL (130-400); Platelet Estimate Decreased (Normal); Polychromasia 1+; RDW Coefficient of Variation 13.6 % (11.5-14.5); RDW Standard Deviation 46.3 fL (36.4-46.3); Red Blood Count 4.12 M/uL (4.70-6.10); White Blood Count 4.53 K/ul (4.8-10.8)
--- NOTE | 2024-09-17 05:45 | Communication Note ---
Date of Service: September 17, 2024 Made aware by RN of platelet count of 26 from 77 yesterday WBC 4.5 Hemoglobin 12.9 No obvious bleed as per RN. AP Pancytopenia Possibly from immunoglobulin therapy Hold heparin subcu for now
[2024-09-17 08:09] LABS: Anaplasmosis Smear(Rpt to DOH) Pos for Anaplasma
[2024-09-17] MEDS: DOXYCYCLINE HYCLATE 100 MG CAP PO SCH (10:21)
--- NOTE | 2024-09-17 11:03 | Hospitalist Progress Note ---
Date of Service September 17, 2024 Assessment & Plan (1) Positive Anaplasma serology: (2) Acute renal failure: (3) Parainfluenza: (4) Fall: (5) Ambulatory dysfunction: (6) Pancytopenia: Plan Patient 88-year-old gentleman presented with a fall and progressive ambulatory dysfunction and weakness. Now with positive anaplasmosis smear. Acute renal failure and thrombocytopenia. With now positive anaplasmosis, probability of Guillain-Hernandez syndrome less likely. Thrombocytopenia limits use of IVIG. Discontinue IVIG Start doxycycline treatment Continue IV fluids and monitor renal function Continue with therapies Monitor platelet levels, anticipate then improving as infection treated Anticipate patient will need rehab placement Phone update to patient's son. Understanding diagnosis and plan of care 52 minutes spent in evaluation patient, communication with specialist, co mmunication medical staff, review of records, interpretation of data, documentation and orders Admission and Anticipated Discharge Date Admission Date: September 13, 2024 Subjective Patient states he slept well overnight. Feels significantly improved compared to yesterday afternoon. He is already recognized that his mobility and strength in his lower extremities have improved. He is eating his breakfast without difficulty. Physical Exam Physical Exam: Constitutional: Alert, sitting up in bed, nontoxic HEENT: Mucous membranes moist. Lungs: Clear to auscultation, decreased, no wheezes rales or rhonchi CV: S1-S2, regular Abdomen: Soft, nontender, nondistended Extremities: Some trace ankle edema Neuro: Strength in lower extremities significantly improved. Able to lift legs off of bed and hold them in the air. He was unable to do this yesterday. Able to manage secretions, swallow much stronger Psych: Cooperative, normal mood Results & Data Results & Data Vital Signs (Past 12 Hours) Vital Signs Temp Pulse Resp BP Pulse Ox O2 Del Method 09/17/24 08:03 36.5 C 58 L 18 143/72 H 94 Room Air 09/17/24 07:54 Room Air 09/17/24 03:17 36.5 C 18 149/60 H 96 Room Air Diagnostic Findings Reviewed imaging, laboratory and diagnostic studies. Pertinent findings as below. Anaplasmosis smear/serology positive CPK 599, improved AST 106 Creatinine 1.60 Sodium 134 Platelets 26, significantly decreased Hemoglobin 12.9 WBCs 4.5
[2024-09-18 07:10] LABS: Hematocrit (blood only) 32.1 % (42.0-52.0); Hemoglobin 11.2 g/dl (14.0-18.0); Mean Corpuscular Hemoglobin 32.2 pg (25.0-34.0); Mean Corpuscular Hgb Conc 34.9 g/dL (32.0-36.0); Mean Corpuscular Volume 92.2 fL (80.0-100.0); Mean Platelet Volume 11.4 fL (9.4-12.4); Platelet Count 33 K/uL (130-400); RDW Coefficient of Variation 13.3 % (11.5-14.5); RDW Standard Deviation 45.1 fL (36.4-46.3); Red Blood Count 3.48 M/uL (4.70-6.10); White Blood Count 6.14 K/ul (4.8-10.8)
[2024-09-18 07:26] LABS: BUN Creatinine Ratio 33.3 (10-20); Calcium 7.2 mg/dl (8.6-10.3); Creatinine Clr Calc Pharmacy 38.9 ml/min; Potassium 3.5 mmol/L (3.5-5.1)
--- NOTE | 2024-09-18 12:51 | Hospitalist Progress Note ---
Date of Service September 18, 2024 Assessment & Plan (1) Positive Anaplasma serology: (2) Acute renal failure: (3) Parainfluenza: (4) Pancytopenia: (5) Fall: (6) Ambulatory dysfunction: Plan Patient 88-year-old gentleman presented initially with fall and diffuse progressive weakness. 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 Continue doxycycline Pancytopenia is improving, WBCs improved, platelets slightly improved, continue to monitor Acute kidney injury slowly improving, continue some gentle hydration Continue working with therapies Case management is working on authorization to [facility] Updated son via phone Admission and Anticipated Discharge Date Admission Date: September 13, 2024 Subjective Patient does not feel quite as good today as yesterday. Feels a bit weaker. But no localizing symptomatology. Physical Exam Physical Exam: Constitutional: Alert, nontoxic HEENT: Mucous membranes moist. Lungs: Clear to auscultation, decreased, no wheezes rales or rhonchi CV: S1-S2, regular Abdomen: Soft, nontender, nondistended Extremities: No significant edema Neuro: Leg strength not as good as yesterday but still able to lift both legs off the bed. Psych: Cooperative, seems a little depressed this morning Results & Data Results & Data Vital Signs (Past 12 Hours) Vital Signs Temp Pulse Resp BP Pulse Ox O2 Del Method 09/18/24 07:25 Room Air 09/18/24 07:22 36.4 C L 60 17 146/72 H 94 Room Air Diagnostic Findings Reviewed imaging, laboratory and diagnostic studies. Pertinent findings as below. WBCs 6.1, improved Hemoglobin 11.2 Platelets 33 slightly improved Creatinine 1.53, slightly improved
[2024-09-18 15:37] VITALS: RESP 16
--- NOTE | 2024-09-18 17:21 | XRay Report ---
INDICATION: Pain TECHNIQUE: 3 views of the lumbosacral spine were obtained. COMPARISON: None FINDINGS: There is an age-indeterminate compression deformity of L1 vertebral body without significant retropulsion. Multilevel degenerative changes of the lumbar spine with disc space narrowing and bilateral facet arthropathy resulting in spinal canal and neural foraminal narrowing most progressed at L5-S1. Surgical clips overlying the left lower abdomen. IMPRESSION: Age-indeterminate compression deformity of L1 vertebral body without significant retropulsion. Please correlate with site of pain. Electronically signed by Brendon Horn 09-18-2024 5:20 PM
--- NOTE | 2024-09-18 17:22 | XRay Report ---
INDICATION: Trauma TECHNIQUE: Frontal pelvis and 2 views of the right hip were obtained. COMPARISON: None FINDINGS: No displaced acute osseous process is identified. Mild osteoarthritis of the right hip joint. IMPRESSION: No displaced acute osseous process is identified. Mild osteoarthritis of the right hip joint. Electronically signed by Brendon Horn 09-18-2024 5:20 PM
[2024-09-18 18:23] LABS: Babesia microti DNA Not Detected (Not Detected)
[2024-09-19 08:29] LABS: Hematocrit (blood only) 30.8 % (42.0-52.0); Hemoglobin 10.3 g/dl (14.0-18.0); Mean Corpuscular Hemoglobin 31.1 pg (25.0-34.0); Mean Corpuscular Hgb Conc 33.4 g/dL (32.0-36.0); Mean Corpuscular Volume 93.1 fL (80.0-100.0); Mean Platelet Volume 11.1 fL (9.4-12.4); Platelet Count 63 K/uL (130-400); RDW Coefficient of Variation 13.9 % (11.5-14.5); RDW Standard Deviation 47.7 fL (36.4-46.3); Red Blood Count 3.31 M/uL (4.70-6.10); White Blood Count 14.88 K/ul (4.8-10.8)
[2024-09-19 08:46] LABS: BUN Creatinine Ratio 43.1 (10-20); Calcium 7.6 mg/dl (8.6-10.3); Creatinine Clr Calc Pharmacy 45.8 ml/min; Potassium 3.6 mmol/L (3.5-5.1)
[2024-09-19 09:58] LABS: Bilirubin Direct 0.3 mg/dl (0-0.2); Bilirubin,Total 0.8 mg/dl (0.2-1.0)
[2024-09-19 10:03] LABS: Total Protein 5.2 gm/dl (6.0-8.3)
[2024-09-19 10:33] LABS: Folate (Folic Acid),Ser orPlas 8.06 ng/ml (>5.38)
--- NOTE | 2024-09-19 15:14 | Hospitalist Progress Note ---
Date of Service September 19, 2024 Assessment & Plan (1) Positive Anaplasma serology: (2) Acute renal failure: (3) Parainfluenza: (4) Pancytopenia: (5) Fall: (6) Ambulatory dysfunction: Plan Mr. 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 Patient reported that he lost balance and fell, but also notes RLE weakness. MRI was negative for acute infarction. Neurology was initially concerned for possible GBS, however, thrombocytopenia was noted and peripheral smear revealed anaplasmosis. IVIG was held and doxycycline started. Steroids also discontinued. Patient reports feeling about the same=--denying any notable improvement or any decline since admission. 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 CT head initially concerning for trace left subdural hemorrhage or artifact, repeat CT head ruled hge out, it likely is calcification. Supportive care for parainfluenza infection; Tylenol, Mucinex. PT OT: rehab Doxycycline bid for anaplasmosis #ROJAS peaked at 1.6 resolved #Thrombocytopenia platelets storm at 26, uptrending to 63 today continue to trend hold dvt ppx at this time #Transaminitis uptrending lfts, likely 2/2 anaplasosis US liver follow lfts no clear tenderness or discomfort noted in RUQ #Leukocytosis possibly 2/2 IVIG no clear local findings at this time CTM #History of colon cancer status post partial colectomy #History of PEnot on anticoagulation, has risk of falls. DNR/DNI DVT prophylaxis SCDs Possible discharge to rehab tomorrow if platelets continue to rise and lfts downtrend Admission and Anticipated Discharge Date Admission Date: September 13, 2024 Subjective NAEO reports no clear changes in status denies any chest pain, concerns with swallowing, other noted areas of weakness Patient states that he is eating well and denies new concerns Reports being eager for rehab--but still unable to ambulate discussed finding of compression fracture--still declines further imaging Physical Exam Constitutional: WD/WN, vitals as above ENMT: right nasolabial fold flattening Respiratory: normal respiratory effort, lungs clear to auscultation Gastrointestinal (Abdomen): normal bowel sounds, soft, nontender, no hepatosplenomegaly Musculoskeletal: strength in BLE 2/5, plantar flexion 3/5, dorsiflexion 3/5 Results & Data Results & Data Vital Signs (Past 12 Hours) Vital Signs Temp Pulse Resp BP Pulse Ox O2 Del Method 09/19/24 09:20 Room Air 09/19/24 07:32 36.4 C L 63 16 136/68 94 Room Air Laboratory Results Short CBC 09/19/24 Range/Units 07:44 WBC 14.88 H (4.8-10.8) K/ul Hgb 10.3 L (14.0-18.0) g/dl Hct 30.8 L (42.0-52.0) % Plt Count 63 L D (130-400) K/uL BMP 09/19/24 07:44 Sodium 139 Potassium 3.6 Chloride 110 H Carbon Dioxide 25 BUN 56 H Creatinine 1.30 Glucose 114 H Calcium 7.6 L Cardiac Enzymes 09/19/24 Range/Units 07:44 Total Creatine Kinase 106 (30-223) U/L Liver Function 09/19/24 Range/Units 07:44 Total Bilirubin 0.8 (0.2-1.0) mg/dl Direct Bilirubin 0.3 H (0-0.2) mg/dl AST 325 H (13-39) U/L ALT 139 H (7-52) U/L Alkaline Phosphatase 98 (34-104) U/L Albumin 2.4 L (3.4-5.0) gm/dl Medications Administered Home Medications Medication Instructions Recorded Confirmed Last Taken ibuprofen 200 mg tablet 200 - 600 mg PO Q4H PRN Pain #0 08/28/17 09/13/24 Unknown tabs loratadine 10 mg tablet 10 mg PO DAILY #0 tabs 08/28/17 09/13/24 Unknown Active Medications Generic Name Dose Route Start Last Admin Trade Name Rene PRN Reason Stop Dose Admin Acetaminophen 1,000 mg 09/16/24 14:00 09/19/24 15:00 Acetaminophen 500 Mg Tab PO 10/16/24 13:59 Not Given TID KERRY Doxycycline Hyclate 100 mg 09/17/24 09:30 09/19/24 09:27 Doxycycline Hyclate 100 Mg Cap PO 10/01/24 09:29 100 mg BID KERRY Administration Gabapentin 100 mg 09/16/24 13:00 09/19/24 09:27 Gabapentin 100 Mg Cap PO 10/16/24 12:59 100 mg BID KERRY Administration Lorazepam 0.5 mg 09/14/24 10:33 09/14/24 12:04 Lorazepam 0.5 Mg Tab PO 10/14/24 10:32 0.5 mg ONE PRN Administration for MRI brain
--- NOTE | 2024-09-19 17:50 | Ultrasound Report ---
Clinical history: Transaminitis Technique: Sonography was performed of the right upper quadrant of the abdomen Findings: There is no sign of cirrhosis or significant fatty infiltration. No definite liver mass is seen The gallbladder has been removed. There is no intrahepatic or extrahepatic bile duct dilatation. The common bile duct measures 5 mm The right kidney measures 11.3 cm in length. There is mild prominence of the right renal collecting system without overt hydronephrosis. No definite renal calculus or mass is seen No ascites is seen. The pancreas was not well seen due to bowel gas. Impression: Unremarkable right upper quadrant abdominal sonogram after prior cholecystectomy ACT 112: Positive. There are findings on this exam that require communication between the performing entity and the patient following Patient Test Result Information Act ([place] ACT 112) guidelines. Electronically signed by Isai Yi 09-19-2024 5:49 PM
[2024-09-19 20:17] VITALS: TEMP 97.3; O2SAT 94
[2024-09-19] MEDS: CALCIUM 600MG + VIT D 400 IU TAB PO SCH (21:08)
[2024-09-20 07:30] LABS: BUN Creatinine Ratio 46.5 (10-20); Bilirubin,Total 0.7 mg/dl (0.2-1.0); Calcium 8.1 mg/dl (8.6-10.3); Creatinine Clr Calc Pharmacy 52.2 ml/min; Globulin 2.7 gm/dl (2.5-4.0); Potassium 3.7 mmol/L (3.5-5.1); Total Protein 5.3 gm/dl (6.0-8.3)
[2024-09-20 07:31] LABS: Hematocrit (blood only) 29.8 % (42.0-52.0); Hemoglobin 10.1 g/dl (14.0-18.0); Mean Corpuscular Hemoglobin 31.7 pg (25.0-34.0); Mean Corpuscular Hgb Conc 33.9 g/dL (32.0-36.0); Mean Corpuscular Volume 93.4 fL (80.0-100.0); Mean Platelet Volume 10.5 fL (9.4-12.4); Nucleated RBC # (auto) 0.03 K/uL (0.00-0.12); Nucleated RBC % (auto) 0.1 %; Platelet Count 108 K/uL (130-400); RDW Standard Deviation 47.7 fL (36.4-46.3); Red Blood Count 3.19 M/uL (4.70-6.10); White Blood Count 21.31 K/ul (4.8-10.8)
[2024-09-20] MEDS: guaiFENesin 600 MG TABCR PO PRN (07:39)
[2024-09-20 07:52] VITALS: BP 149/78; PULSE 77
[2024-09-20] MEDS: predniSONE 20 MG TAB PO SCH (08:20)
[2024-09-20 08:38] LABS: Eosinophils # (manual) 0.64 K/uL (0-0.50); Eosinophils % (manual) 3 %; Lymphocytes # (manual) 2.56 K/uL (1.2-3.4); Lymphocytes % (manual) 12 %; Monocytes # (manual) 1.07 K/uL (0.11-0.59); Monocytes % (manual) 5 %; Neutrophils % (manual) 23 %; Reactive Lymphocytes # (manual) 12.15 K/uL; Reactive Lymphocytes % (manual) 57 %
--- NOTE | 2024-09-20 11:12 | Discharge Summary ---
Discharge Summary Date of Service September 20, 2024 Principal Dx & Hospital Course #1 = Principal Diagnosis (1) Positive Anaplasma serology: (2) Acute renal failure: (3) Parainfluenza: (4) Pancytopenia: (5) Fall: (6) Ambulatory dysfunction: Plan Mr. 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 Patient reported that he lost balance and fell, but also notes RLE weakness. MRI was negative for acute infarction. Neurology was initially concerned for possible GBS, however, thrombocytopenia was noted and peripheral smear revealed anaplasmosis. IVIG was held and doxycycline started. Steroids also discontinued initially given the concern for gbs. Patient reports feeling marginally better today and excited for dispo to rehab. #abnormal cbc leukocytosis, uptrending platelets, plateaued anemia suspect multifactorial, likely in combination of anaplasmosis, acute illness, and steroid administration no sign of bleed or hemolysis noted will need repeat cbc with diff in 1 week #L1 compression fracture, chronic #right hip osteoarthritis noted on personal review of xray refused further advanced imaging pain management as able, gabapentin 100mg bid plan for rehab still notable weakness BLE--recommended MRI at some point in time if weakness continues, patient apprehensive at this time for further evaluation Short 5 day steroid course #right facial droop noted to be present about last week per son 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 CT head initially concerning for trace left subdural hemorrhage or artifact, repeat CT head ruled hge out, it likely is calcification. Supportive care for parainfluenza infection; Tylenol, Mucinex. PT OT: rehab Doxycycline bid for anaplasmosis for total of 14 days #ROJAS peaked at 1.6 resolved #Thrombocytopenia resolving platelets storm at 26, uptrending to 104 today continue to trend hold dvt ppx at this time #Transaminitis *downtrending uptrending lfts, likely 2/2 anaplasosis US liver unremarkable AST falling, anticipate ALT to downtrend as well CMP in 1 week #History of colon cancer status post partial colectomy #History of PEnot on anticoagulation, has risk of falls. DNR/DNI Dispo to SNF Notes For Next Care Provider Please obtain CBC with Diff and CMP in 1 week Please consider MRI L-spine if weakness persists, patient declined during hospitalization, but may reconsider Medication Changes From Visit Doxycycline 100mg BId x 12 days (total 14) Prednisone 40mg daily x 5 days Gabapentin 100mg bid Tylenol 1000mg TID Calcium Vit D supplement BID Admission HPI Per Admitting Provider History obtained from interview with the patient and chart review Past medical history of colon cancer status post partial colectomy in 1996, history of PE Patient presented to the hospital with reports of generalized weakness and fatigue. Patient woke up from the nap; felt weaker and had a hard time getting out of the recliner any fell on the ground. Patient denies fever, sore throat, shortness of breath, chest pain, abdominal pain nausea or vomiting or any urinary symptoms. On presentation to the ED, he was hypertensive, afebrile and saturating well in room air. CBC did not reveal leukocytosis. BUN/creatinine within normal limits. High-Sensitivity Troponin Was Mildly Elevated with No Delta gap. Urinalysis does not suggest infection. Respiratory viral panel was positive for parainfluenza. Chest x-ray did not show acute findings. CT head without contrast showed very small area of increased density in the left subdural space which could represent trace left subdural hemorrhage or artifact. Discussion was done by ED provider with patient and patient's son; patient does not want any intervention/surgery. Patient was referred for admission. Admission Exam Per Admitting Provider On physical examination; Constitutional: WD/WN, vitals as above, NAD, sitting up in bed, pleasant, conversing easily head- bandage over the head, rech KRYSTAL surgery Respiratory: normal respiratory effort, lungs clear to auscultation, no wheeze, rales, rhonchi. Normal insp/exp effort, no accessory muscle use Cardiovascular: RRR, no murmur, no edema Vessels: no JVD or carotid bruit Chest: normal inspection of chest Abdomen: normal bowel sounds, soft, nontender, no hepatosplenomegaly Musculoskeletal: no cyanosis or clubbing, extremities motor strength 5/5 Skin: no rashes, warm and dry normal turgor Neurologic: PERRL, EOMI, accommodation nl, no face palsy, no dysarthria CN's II- XI intact bilaterally and moves all extremities Psychiatric: A+Ox3, euthymic affect Discharge Exam Constitutional WD/WN, vitals as above ENMT right nasolabial fold flattening Respiratory normal respiratory effort, lungs clear to auscultation Cardiovascular RRR, no murmur, no edema Gastrointestinal (Abdomen) normal bowel sounds, soft, nontender, no hepatosplenomegaly Neurologic 2/5 BLE strength Updated Medication List Medication Instructions Recorded Confirmed Type loratadine 10 mg tablet 10 mg PO DAILY #0 tabs 08/28/17 09/13/24 History acetaminophen 500 mg tablet 1,000 mg (2 x 500 mg) PO TID 30 09/20/24 Rx (Tylenol Extra Strength) days #180 tabs calcium 600 mg-D3 800 unit-mag11 1 tab PO BID 30 days #60 tabs 09/20/24 Rx 50 [id number]-bebe-[id number].borat tablet (Caltrate 600-D Plus Minerals) doxycycline hyclate 100 mg capsule 100 mg PO BID 12 days #24 caps 09/20/24 Rx gabapentin 100 mg capsule 100 mg PO BID 30 days #60 caps 09/20/24 Rx prednisone 20 mg tablet 40 mg (2 x 20 mg) PO QAM 5 days 09/20/24 Rx #10 tabs Hospital Stay Data Consultations 09/13/24 15:44 ED Decision to Admit Stat 09/14/24 10:35 Consult Neurology Routine Diagnostic Imagining Performed 09/13/24 12:58 CT head/brain wo con Stat 09/14/24 07:00 CT head/brain wo con Routine 09/14/24 10:33 MR brain wo/w con Routine 09/19/24 15:07 US liver Routine Pending Results Patient Have Any Pending Studies at Discharge: No Discharge Instructions Given to Patient (Per Discharging Provider) You were admitted for evaluation of fall and weakness. 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 You were started on antibiotics. You will continue doxycycline 100mg two times a day for 12 more days. You were noted to have a compression fracture in your low back. This did appear to be older. This was seen on an XRAY. It is recommended to consider an MRI for your low back if weakness continues. You were started on gabapentin two times a day and a brief steroid pack to help with pain. The steroid should also assist with your liver counts, blood counts, and the facial droop noted from the anaplasmosis. You will need labs in 1 week: CBC and CMP Total Time Total Time Spent Total Time Spent (In Minutes): 55
[2024-09-20 11:16] LABS: Hemoglobin 9.8 g/dl (14.0-18.0); Mean Corpuscular Hemoglobin 32.3 pg (25.0-34.0); Mean Corpuscular Volume 92.4 fL (80.0-100.0); Mean Platelet Volume 10.3 fL (9.4-12.4); Nucleated RBC # (auto) 0.02 K/uL (0.00-0.12); Nucleated RBC % (auto) 0.1 %; Platelet Count 125 K/uL (130-400); RDW Standard Deviation 47.6 fL (36.4-46.3); Red Blood Count 3.03 M/uL (4.70-6.10); White Blood Count 19.98 K/ul (4.8-10.8)
== END 2024-09-20 14:17 | DRG 868 ==
LOC: ED 12:45 → 3W 16:39 → SUATTDRO 16:39 → 3W 17:10